=== PATIENT | male | born 2000 | race Asian ===

== ENCOUNTER 2023-12-02 18:25 | Emergency (ER) | payer OTHER, MEDICAID, SELFPAY ==
[2023-12-02] VITALS (7 sets, daily range): BP systolic 121–140; BP diastolic 63–87; PULSE 100–108; RESP 16; TEMP 36.8; O2SAT 95–99; BMI 22.0
--- NOTE | 2023-12-02 18:34 | DI.US.S_ITS ---
PROCEDURE: US SCROTUM INDICATIONS: PAINFUL TESTICLE TECHNIQUE: Real-time scanning was performed of the scrotum and testicles, with image documentation. Color and pulse Doppler interrogation was performed of both testicles. COMPARISON: None. FINDINGS: Right: Testicle is normal in size at 4.4 x 2.9 x 2.3 cm, and homogenous in echotexture. Epididymis is normal in overall size and morphology. No hydrocele. Varicocele is present. Overlying scrotal skin is normal in thickness. Left: Testicle is normal in size at 4.8 x 2.9 x 2.3 cm, and homogeneous in echotexture. Epididymis is normal in overall size and morphology. No hydrocele or varicoceles. Overlying scrotal skin is normal in thickness. Doppler: Color and pulse Doppler demonstrate normal and symmetric arterial flow in both testicles. IMPRESSION: 1. No testicular torsion or epididymitis identified. 2. No testicular mass. 3. Right varicocele. No left varicocele. Consider further evaluation of the retroperitoneum with CT abdomen pelvis with IV contrast in this young patient with right unilateral varicocele. Dictated by: Santos Reed M.D. on 12/02/2023 at 19:41 Approved by: Santos Reed M.D. on 12/02/2023 at 19:45
--- NOTE | 2023-12-02 18:35 | ED_ITS ---
HPI - Male Genitourinary General Chief complaint: Urogenital-Male Stated complaint: testicular torsion T-2 pain Time Seen by Provider: 12/02/23 18:28 History of Present Illness HPI Narrative: 22-year-old male with no reported past medical history presents for 2 days of right-sided testicular pain and swelling. Patient states that pain is aggravating, intense, constant, does not radiate. He stated that he thought it would go away on its own but when he did not he spoke with his dad, who told him to go to the emergency department for an ultrasound. To his knowledge he does not have any history of testicular problems and has never had surgery on his testicles or scrotum. Denies difficulty urinating. Related Data Previous Rx's Medication Instructions Recorded hydrocodone 5 mg-acetaminophen 325 1 tab PO Q4-6H PRN pain #10 tabs 12/02/23 mg tablet Allergies Allergy/AdvReac Type Severity Reaction Status Date / Time No Known Drug Allergies Allergy Verified 12/02/23 18:36 Review of Systems Review of Systems Narrative: Negative except as noted above Patient History Social History Smoking Status: Never smoker Exam Narrative Exam Narrative: Const: Awake, alert, uncomfortable, nontoxic in appearance Cardiac: regular rate, regular rhythm RESP: unlabored, clear bilaterally, no wheezing GI: Atraumatic, soft, nontender, nondistended, no rebound, no guarding : Dry Cans Back Tender present, right testicle swollen, diffusely tender to palpation Skin: Warm, Dry, intact, no rashes Neuro: AO x3, CN II-XII grossly intact, moves all extremities Initial Vital Signs Initial Vital Signs: Vital Signs Temperature 98.2 F 12/02/23 18:33 Pulse Rate 108 H 12/02/23 18:33 Respiratory Rate 16 12/02/23 18:33 Blood Pressure 129/87 12/02/23 18:33 Pulse Oximetry 98 12/02/23 18:33 Oxygen Delivery Method Room Air 12/02/23 18:33 Course Orders Ordered: ED Orders 12/02/23 19:51 CT abdomen pelvis w con Stat 12/02/23 22:03 Respiratory Panel (Film Array) Stat Discontinued Medications Hydrocodone Bitart/Acetaminophen (Hydrocodone/Acet 5/325 Prepack) 1 bottle MISC DIRECTED ONE Stop: 12/02/23 21:46 Last Admin: 12/02/23 21:56 Dose: 1 bottle Documented By: BASSAM Ketorolac Tromethamine (Ketorolac 30 Mg/Ml Vial) 15 mg IV NOW ONE Stop: 12/02/23 21:04 Last Admin: 12/02/23 21:10 Dose: 15 mg Documented By: BASSAM Morphine Sulfate (Morphine 4 Mg/Ml Inj) 4 mg IV NOW ONE Stop: 12/02/23 18:36 Last Admin: 12/02/23 18:53 Dose: 4 mg Documented By: BASSAM Vital Signs Vital signs: Vital Signs - 8 hr 12/02/23 20:42 12/02/23 20:42 12/02/23 21:00 Pulse Rate 107 H Blood Pressure 140/71 121/70 Pulse Oximetry 99 12/02/23 21:00 12/02/23 21:30 12/02/23 21:30 Pulse Rate 105 H 105 H Blood Pressure 130/63 Pulse Oximetry 98 97 MDM - Male Genitourinary Differential Diagnosis Differential diagnosis: Likely urinary tract infection, priapism and urethritis Lab Data 12/02/23 18:47 12/02/23 18:47 Labs: Lab Results 12/02/23 12/02/23 12/02/23 Range/Units 18:47 19:23 22:03 WBC 14.9 H (4.5-11.0) X10^3/uL RBC 5.25 (4.5-5.9) X10^6/uL Hgb 15.0 (13.5-17.5) g/dL Hct 44.9 (41-53) % MCV 85.7 (80-100) fL MCH 28.7 (26-34) PG MCHC 33.5 (30-36) % RDW 14.0 (11.6-14.8) % Plt Count 230 (150-400) X10^3/uL Neut % (Auto) 76.1 H (50-75) % Lymph % (Auto) 13.1 L (25-40) % [place] % (Auto) 10.4 (3-14) % Eos % (Auto) 0.2 L (2-4) % Baso % (Auto) 0.2 (0-2) % Neut # (Auto) 23499 H (9567-3170) /uL Lymph # (Auto) 2000 (4334-0056) /uL [place] # (Auto) 1500 H (0-900) /uL Eos # (Auto) 0 (0-450) /uL Baso # (Auto) 0 (0-100) /uL PT 13.9 H (9.4-12.5) SECONDS INR 1.2 (0.9-1.3) Sodium 137 (137-145) mmol/L Potassium 4.2 (3.4-5.1) mmol/L Chloride 104 (98-107) mmol/L Carbon Dioxide 25 (22-32) mmol/L BUN 16 (9-20) mg/dL Creatinine 0.82 (0.66-1.25) mg/dL Estimated GFR > 60 (>60) mL/min BUN/Creatinine Ratio 19.5 (6-22) Glucose 88 (70-100) mg/dL Calcium 9.0 (8.4-10.2) mg/dL Total Bilirubin 1.2 (0.2-1.3) mg/dL AST 45 (17-59) IU/L ALT 17 (<50) IU/L Alkaline Phosphatase 70 (38-126) U/L Total Protein 8.0 (6.3-8.2) g/dL Albumin 4.3 (3.5-5.0) g/dL Globulin 3.7 (1.7-4.1) g/dL Albumin/Globulin Ratio 1.2 (1.0-2.8) Chlamy pneumoniae PCR Not detected (Not Detect) Adenovirus (PCR) Not detected (Not Detect) B.parapertussis DNA PCR Not detected (Not Detecte) Coronavirus OC43 (PCR) Not detected (Not Detect) Coronavirus HKU1 (PCR) Not detected (Not Detect) Coronavirus 229E (PCR) Not detected (Not Detect) SARS-CoV-2 (PCR) Not detected (Not Detecte) Coronavirus NL63 (PCR) Not detected (Not Detect) Human Metapneumovir PCR Not detected (Not Detect) Influenza Type A (PCR) Not detected (Not Detect) Influenza Type B (PCR) Not detected (Not Detect) M. pneumoniae (PCR) Not detected (Not Detect) Parainfluenza 1 (PCR) Not detected (Not Detect) Parainfluenza 2 (PCR) Not detected (Not Detect) Parainfluenza 3 (PCR) Not detected (Not Detect) Parainfluenza 4 (PCR) Not detected (Not Detect) RSV (PCR) Not detected (Not Detect) Entero/Rhino (PCR) Not detected (Not Detect) Blood Type A Positive Antibody Screen Negative MDM Narrative Medical decision making narrative: Two days of right testicular pain. Ultrasound paged stat to perform scrotal study. Labs, pain medications ordered. Laboratory work is reviewed. WBC count 14.9, which may be reactive. Ultrasound shows right-sided varicocele, no varicocele on the left-hand side. Discussed case with Dr. Posey of on-call urology, who recommended a CT of the abdomen and pelvis with contrast as a unilateral right-sided varicocele is very unusual, especially in a young patient. Patient reassessed, resting comfortably, endorsing mild pain in his testicle but it was well controlled with current medications. CT of the abdomen and pelvis shows borderline retroperitoneal lymphadenopathy throughout the periaortic region of uncertain specificity. This could be related to the patient's varicocele but it has yet to be determined. Incidental note made of some mild biliary ductal dilation, however patient has no upper abdominal pain, no nausea, no vomiting, liver enzymes are within normal limits. Patient and his father were updated of all lab and imaging results at bedside as well as Urology recommendations. Patient recommended to take Tylenol and Motrin as needed for pain, apply ice as needed for comfort, and to elevate the scrotum to help relieve swelling. Short course of pain medication sent to pharmacy of choice for additional pain control, patient counseled on maximum doses of Tylenol. Close urology follow up advised and referral provided. Discharge Plan Departure Patient Disposition: Home Clinical Impression: Varicocele, Testicular pain, right Instructions: DI for Varicocele Activity Restrictions/Additional Instructions: Your ultrasound today did not show any signs of testicular torsion. You have something called a varicocele in your right scrotum, but there does not appear to be an infection at this time. On the CT scan it does show that you have some enlarged lymph nodes in your abdomen. The exact cause of these enlarged lymph nodes is not obvious, it may be related to the varicocele that you have today, however it was extremely important that you follow up with Urology. Take Tylenol and Motrin for pain, apply ice to your testicles as needed for pain, elevating the scrotum may also help release some symptoms. There will be Tylenol in the prescribed medication, make sure to take no more than 4000 mg total of Tylenol per day. Prescriptions: New hydrocodone-acetaminophen 5-325 mg tablet 1 tab PO Q4-6H PRN (Reason: pain) Qty: 10 0RF Referrals: Mishel Wagner MD [Physician] - Miscellaneous,MD Violeta [Primary Care Provider] - Stand Alone Forms: Patient Portal/API
[2023-12-02] MEDS: MORPHINE 4 MG/ML INJ IV (18:53)
[2023-12-02 18:59] LABS: Add Manual Diff / Slide Review NO; Basophils Absolute Auto 0 /uL (0-100); Basophils Percent Auto 0.2 % (0-2); Eosinophils Absolute Auto 0 /uL (0-450); Eosinophils Percent Auto 0.2 % (2-4); Hematocrit 44.9 % (41-53); Lymphocytes Absolute Auto 2000 /uL (1100-4500); Lymphocytes Percent Auto 13.1 % (25-40); Mean Corpuscular HGB Conc 33.5 % (30-36); Mean Corpuscular Hemoglobin 28.7 PG (26-34); Mean Corpuscular Volume 85.7 fL (80-100); Monocytes Absolute Auto 1500 /uL (0-900); Monocytes Percent Auto 10.4 % (3-14); Neutrophils Absolute Auto 11300 /uL (1500-7000); Neutrophils Percent Auto 76.1 % (50-75); Platelet Count 230 X10^3/uL (150-400); Red Blood Cell Count 5.25 X10^6/uL (4.5-5.9); White Blood Cell Count 14.9 X10^3/uL (4.5-11.0)
[2023-12-02 19:07] LABS: INR 1.2 (0.9-1.3); Prothrombin Time 13.9 SECONDS (9.4-12.5)
[2023-12-02 19:11] LABS: Alanine Aminotransferase 17 IU/L (<50); Albumin 4.3 g/dL (3.5-5.0); Albumin Globulin Ratio 1.2 (1.0-2.8); Alkaline Phosphatase 70 U/L (38-126); Aspartate Aminotransferase 45 IU/L (17-59); BUN Creatinine Ratio 19.5 (6-22); Bilirubin Total 1.2 mg/dL (0.2-1.3); Blood Urea Nitrogen 16 mg/dL (9-20); Carbon Dioxide 25 mmol/L (22-32); Chloride 104 mmol/L (98-107); Estimated Glomerular Filt Rate > 60 mL/min (>60); Globulin 3.7 g/dL (1.7-4.1); Glucose 88 mg/dL (70-100); HEMOLYSIS 20 (0-50); Potassium 4.2 mmol/L (3.4-5.1); Sodium 137 mmol/L (137-145)
--- NOTE | 2023-12-02 19:51 | DI.CT.S_ITS ---
PROCEDURE: CT ABDOMEN PELVIS W CON INDICATIONS: UNILATERAL R VARICOCELE TECHNIQUE: After the administration of intravenous contrast, axial sections acquired from the lung bases to the pubic symphysis. Coronal and sagittal reformats were performed. For radiation dose reduction, the following was used: automated exposure control, adjustment of mA and/or kV according to patient size. COMPARISON: [facility], , US SCROTUM, 12/02/2023, 18:55. FINDINGS: Image quality: Diagnostic. Lower Chest: No significant findings. ABDOMEN: Liver: No solid mass. Gallbladder: No radiopaque gallstones or wall thickening. Biliary ducts: Mild diffuse intrahepatic biliary ductal dilatation. Common bile duct mild result to 11 mm in diameter without focal cutoff or choledocholith identified. Pancreas: No ductal dilation. Spleen: Size is within normal limits. Adrenal Glands: No adrenal nodules. Kidneys and Ureters: No hydronephrosis. No solid mass. No complex renal cystic lesion which requires follow up. Stomach and Bowel: Normal colonic caliber, without significant wall thickening. Peritoneum: No abnormal intraperitoneal fluid. No free air. Ventral Wall: No significant ventral hernia. Abdominal Nodes: Small periaortic retroperitoneal lymph nodes are present. No definite compressive mass at the level of the confluence of the right gonadal vein and IVC. Vessels: Aorta and inferior vena cava are normal in size. PELVIS: Pelvic Organs: Right posterior scrotum appears thickened with mild asymmetric epididymal enhancement and prominent vessels versus mild varicosities. Bladder: No bladder wall thickening, accounting for underdistention. Pelvic Nodes: No enlarged lymph nodes. Miscellaneous: No inguinal hernias are seen. Bones: No aggressive osseous abnormality. IMPRESSION: 1. Mild edema in the right scrotum with hyper enhancement of the right epididymis, possibly related to epididymitis or unilateral venous congestion. 2. Borderline sized retroperitoneal lymphadenopathy is seen throughout the periaortic region. The appearance is nonspecific and may be reactive or inflammatory, although lymphoma or no new metastatic disease are not excluded. Recommend correlation with clinical findings, history, and laboratory values. 3. Mild intrahepatic and extrahepatic biliary ductal dilatation. No choledocholith or obstructing mass is identified. Recommend correlation with laboratory values to exclude biliary obstruction. Approved by: Abraham Jean M.D. on 12/02/2023 at 21:24
[2023-12-02] MEDS: KETOROLAC 30 MG/ML VIAL 15 MG IV (21:10)
[2023-12-02] MEDS: HYDROCODONE/ACET 5/325 PREPACK 1 BOTTLE MISC (21:56)
--- NOTE | 2023-12-02 21:59 | PC.NURSE ---
Addendum entered by Sandra Parra R.N. 12/02/23 23:11: Notified patient of negative resp panel and to follow up with urology. Original Note: At discharge, patient reported feeling warm, temporal temp 102, oral temp 99.2. Patient stated starting feeling sick yesterday evening with fever and headache and has been taking tylenol for that. Notified provider, orders placed to do respiratory panel and proceed with discharge. If continues to feel unwell to f/u at Urgent care, [facility], or ED.
[2023-12-02 22:56] LABS: Adenovirus Not Detected (Not Detect); B. parapertussis Not Detected (Not Detecte); Bordetella pertussis Not Detected (Not Detect); Chlamydophila pneumoniae Not Detected (Not Detect); Coronavirus 229E Not Detected (Not Detect); Coronavirus HKU1 Not Detected (Not Detect); Coronavirus NL 63 Not Detected (Not Detect); Coronavirus OC43 Not Detected (Not Detect); Human Metapneumovirus Not Detected (Not Detect); Human Rhinovirus/Enterovirus Not Detected (Not Detect); Influenza A Not Detected (Not Detect); Influenza B Not Detected (Not Detect); Mycoplasma pneumoniae Not Detected (Not Detect); Parainfluenza Virus 1 Not Detected (Not Detect); Parainfluenza Virus 2 Not Detected (Not Detect); Parainfluenza Virus 3 Not Detected (Not Detect); Parainfluenza Virus 4 Not Detected (Not Detect); Respiratory Syncytial Virus Not Detected (Not Detect); SARS- CoV-2 Not Detected (Not Detecte)
== END 2023-12-02 22:04 | disposition home or self-care (01) ==
PROVIDERS: Emergency Provider Emergency Medicine
DX: I86.1 Scrotal varices (principal); N50.811 Right testicular pain; Z20.822 Contact with and (suspected) exposure to COVID-19
CPT/HCPCS: 36415; 74177; 76870; 80053; 85025; 85610; 86850; 86900; 86901; 87633; 93975; 96374; 96375; 99284; J1885; J2270; Q9967